=== PATIENT | female | born 1960 | race Caucasian/White ===

== ENCOUNTER → 2018-05-18 | Outpatient (CLI) | payer BC ==
[~2018-05-18] MED LIST: CRUTCH4 USE; HYDACE5 PO
== END ==
LOC: PLD 08:00 → LAB SHORT 08:00
DX: D48.5 Neoplasm of uncertain behavior of skin (principal)
CPT/HCPCS: 88305

== ENCOUNTER → 2019-09-30 | Outpatient (CLI) | payer BC ==
[2019-09-30 12:03] LABS: Microalb/Creat Ratio UR, Rand 4.307 mg/g (0.000-30.000); Microalbumin, Random Urine 5.47 mg/L (0.000-20.000)
== END | disposition home or self-care (01) ==
LOC: LAB EV 09:33
PROVIDERS: Family Medicine
DX: I10 Essential (primary) hypertension (principal); E78.5 Hyperlipidemia, unspecified
CPT/HCPCS: 82043; 82570

== ENCOUNTER 2021-03-06 11:21 | Day surgery (SDC) | payer BC ==
[~2021-03-06] VITALS: Ht 170.2 cm; Wt 101.5 kg
[~2021-03-06 11:21] MED LIST changes: +CLIMARA PRO PA1 EACH TD; +HYDCHL25 PO; +IBUP200 PO; +LISI5 PO
[2021-03-06] MEDS ORDERED: ACET250 PO (11:40)
== END 2021-03-06 12:24 | disposition home or self-care (01) ==
LOC: ORSCSDS 11:21
PROVIDERS: Anesthesiology
PROC: 3E0R33Z Introduction of Anti-inflammatory into Spinal Canal, Percutaneous Approach (ICD-10-PCS; principal; 2021-03-06 12:30)
DX: M51.16 Intervertebral disc disorders with radiculopathy, lumbar region (principal); I10 Essential (primary) hypertension; E78.00 Pure hypercholesterolemia, unspecified; E66.9 Obesity, unspecified; Z68.35 Body mass index [BMI] 35.0-35.9, adult; Z79.899 Other long term (current) drug therapy
CPT/HCPCS: J1040

== ENCOUNTER 2021-04-22 15:03 | Day surgery (SDC) | payer BC ==
[~2021-04-22] VITALS: Ht 170.2 cm; Wt 101.7 kg
[~2021-04-22 15:03] MED LIST changes: +ACET250 PO
== END 2021-04-22 16:17 | disposition home or self-care (01) ==
LOC: ORSCSDS 15:03
PROVIDERS: Anesthesiology
PROC: 3E0R33Z Introduction of Anti-inflammatory into Spinal Canal, Percutaneous Approach (ICD-10-PCS; principal; 2021-04-22 16:00)
DX: M51.16 Intervertebral disc disorders with radiculopathy, lumbar region (principal); I10 Essential (primary) hypertension; E78.00 Pure hypercholesterolemia, unspecified; E66.9 Obesity, unspecified; Z68.35 Body mass index [BMI] 35.0-35.9, adult; Z79.899 Other long term (current) drug therapy
CPT/HCPCS: J1040

== ENCOUNTER 2021-11-27 14:23 | Day surgery (SDC) | payer OTHER ==
[~2021-11-27] VITALS: Ht 170.2 cm; Wt 102.4 kg
--- NOTE | 2021-11-27 15:35 | NUR ---
11/27/21 1535 Christine Staley POST PROCEEDURE NOTICED REDNESS IN THE AREA OF BETADINE, PT IS AWARE OF THIS AN WILL MONITOR IT. POSSIBLE BETADINE ALLERGY.
== END 2021-11-27 15:24 | disposition home or self-care (01) ==
LOC: ORSCSDS 14:23
PROVIDERS: Anesthesiology
PROC: 3E0R33Z Introduction of Anti-inflammatory into Spinal Canal, Percutaneous Approach (ICD-10-PCS; principal; 2021-11-27 15:30)
DX: M51.16 Intervertebral disc disorders with radiculopathy, lumbar region (principal); E78.00 Pure hypercholesterolemia, unspecified; I10 Essential (primary) hypertension; E66.9 Obesity, unspecified; Z68.35 Body mass index [BMI] 35.0-35.9, adult; Z79.899 Other long term (current) drug therapy
CPT/HCPCS: J1040

== ENCOUNTER 2021-12-17 06:36 | Day surgery (SDC) | payer OTHER ==
[~2021-12-17] VITALS: Ht 170.2 cm; Wt 101.6 kg
[2021-12-17] MEDS ORDERED: ASPIR 8181 M1 (07:08)
[2021-12-17] MEDS ORDERED: CLIMARA1 EAC2 (07:08)
== END 2021-12-17 07:49 | disposition home or self-care (01) ==
LOC: ORSCSDS 06:36
PROVIDERS: Anesthesiology
PROC: 3E0R3BZ Introduction of Anesthetic Agent into Spinal Canal, Percutaneous Approach (ICD-10-PCS; principal; 2021-12-17 07:30)
DX: M51.16 Intervertebral disc disorders with radiculopathy, lumbar region (principal); M54.50 Low back pain, unspecified; I10 Essential (primary) hypertension; E78.00 Pure hypercholesterolemia, unspecified; E78.5 Hyperlipidemia, unspecified; E55.9 Vitamin D deficiency, unspecified; Z79.82 Long term (current) use of aspirin; Z79.899 Other long term (current) drug therapy
CPT/HCPCS: J1040

== ENCOUNTER → 2022-02-05 | Outpatient (CLI) | payer OTHER ==
[~2022-02-05] MED LIST changes: +ASPIR 8181 M1; +CLIMARA1 EAC2
[2022-02-07 14:12] LABS: HPV 16 Negative (Negative); HPV 18 Negative (Negative); HPV OTHER HR TYPES Negative (Negative)
== END | disposition home or self-care (01) ==
LOC: LAB SHORT 13:36
PROVIDERS: Obstetrics & Gynecology
DX: Z01.419 Encounter for gynecological examination (general) (routine) without abnormal findings (principal)
CPT/HCPCS: 87624; G0123

== ENCOUNTER 2022-06-17 06:46 | Day surgery (SDC) | payer OTHER ==
[~2022-06-17] VITALS: Ht 170.2 cm; Wt 229.6 kg
[2022-06-17] MEDS ORDERED: MELO7.5 (07:13)
== END 2022-06-17 08:50 | disposition home or self-care (01) ==
LOC: ORSCSDS 06:46
PROVIDERS: Surgery
PROC: 0DJD8ZZ Inspection of Lower Intestinal Tract, Via Natural or Artificial Opening Endoscopic (ICD-10-PCS; principal; 2022-06-17 08:00)
DX: Z12.11 Encounter for screening for malignant neoplasm of colon (principal); I10 Essential (primary) hypertension; E78.5 Hyperlipidemia, unspecified; E66.9 Obesity, unspecified; Z68.35 Body mass index [BMI] 35.0-35.9, adult; Z79.899 Other long term (current) drug therapy
CPT/HCPCS: J2704; J7120

== ENCOUNTER → 2023-07-21 | Outpatient (CLI) | payer OTHER ==
[~2023-07-21] MED LIST changes: +MELO7.5
== END ==
LOC: LAB SHORT 07:40 → PLD 07:40
DX: L08.89 Other specified local infections of the skin and subcutaneous tissue (principal); L90.5 Scar conditions and fibrosis of skin
CPT/HCPCS: 88305